=== PATIENT | male | born 1975 | race Caucasian/White ===

== ENCOUNTER 2019-05-19 10:45 | Day surgery (SDC) | payer OTHER, SELFPAY ==
[2019-05-18 08:42] VITALS: BMI 43.7
[2019-05-19] VITALS (11 sets, daily range): BP systolic 130–173; BP diastolic 60–85; PULSE 52–60; RESP 15–20; TEMP 36.4–36.6; O2SAT 91–97
--- NOTE | 2019-05-19 11:36 | ANES.PREANES ---
Pre-Anesthetic Assessment Pre-Anesthetic Assessment: Height/Weight: Height 1.91 m Weight 158.757 kg Proposed Procedure: Operation Date: 05/19/19 12:45 Proposed Procedures p Laparoscopic Possible open Cholecystectomy(Not Applicable) - Demetrio Alonso MD Last intake: Intake Last Liquid Date 05/18/19 Last Liquid Time 23:50 Last Solid Date 05/18/19 Last Solid Time 23:50 Social: Social History: No alcohol and No tobacco Exam: Pre-Anes Outpt Exam: alert, oriented x 3, clear to auscultation bilaterally and regular rate & rhythm Airway: Submandibular: WNL Cervical ROM: WNL MP: 1 Dentition: Other (teeth OK) Pulmonary: Pulmonary: Sleep apnea CV/HEM: CV/HEM: None reported : : None reported Hepatic: Hepatic: None reported GI: GI: None reported Metabolic: Metabolic: Morbid obesity Musc/skel: Musc/skel: None reported Neuropsych: Neuropsych: None reported Anesthetic Plan: ASA status: II Anesthesia: Anesthesia Evaluation and General Risk of > 500 ml blood loss (7ml/kg in children): No PFSH Anesthesia PFSH: Medical History Bronchitis (Acute) Cholecystitis with cholelithiasis (Acute) RUQ abdominal pain (Acute) Staph infection (Acute) Surgical History History of chest tube placement (Acute) History of vasectomy (Acute) Hx of appendectomy (Acute) Hx of splenectomy (Acute) Social History Smoking and tobacco status: current every day smoker Alcohol intake: current Alcohol intake frequency: few times a week Substance/Drug Use: never Adopted: Yes Data Anesthesia Cardiac Studies: No Data to Display
[2019-05-19] MEDS: sodium chloride 0.9% 1,000 ML 30 ML IV (12:11)
[2019-05-19] MEDS: ceFAZolin 1,000 mg SDV 1000 MG IVP (12:25)
[2019-05-19 13:00] LABS: Alanine Aminotransferase 65 U/L (0-41); Albumin Level 5.3 g/dL (3.5-5.2); Alkaline Phosphatase 89 IU/L (40-130); Aspartate Amino Transferase 52 U/L (0-40); Globulin 1.6 g/dL (1.3-4.6); Total Bilirubin 0.7 mg/dL (0.15-1.2); Total Protein 6.9 g/dL (6.6-8.7)
--- NOTE | 2019-05-19 13:45 | PM.OP ---
Operative Report Post-Operative Note: Date of procedure: 05/19/19 Preop Diagnosis: Symptomatic cholelithiasis Post-op diagnosis: same Procedure Done: Laparoscopic cholecystectomy. Specimens removed/disposition: Gallbladder and contents. Surgeon: Demetrio Alonso Anesthesia: general Estimated blood loss (mL): 25 Condition: stable Disposition: PACU Operative Report: Procedure: The patient was brought to the Operating Room and was placed in a supine position on the Operating Room table. General endotracheal anesthesia was induced. The abdomen was prepped and draped in a sterile fashion. A small vertical incision was carried out in the inferior aspect of the umbilicus. Blunt dissection was carried out down to the fascia, which was grasped with a Jud clamp. A stay suture of 0 Vicryl was placed on either side of the midline and the midline fascia was incised. The underlying peritoneum was opened bluntly and the Mary port was placed directly into the peritoneal cavity and was held in place with the inflatable balloon. The peritoneal cavity was insufflated with carbon dioxide. The laparoscope was used to inspect the abdominal cavity. The patient had extensive adhesions throughout the abdomen. Some of these involved loops of small bowel to the anterior abdominal wall. The right upper quadrant primarily had fatty adhesions. Two 5-millimeter ports were placed on the right side of the abdomen under direct vision. The adhesions in the right upper quadrant were then taken down using blunt dissection with some cautery to maintain hemostasis. This was carried out medially so that a third 5 mm port could be placed under direct vision just to the right side of the epigastrium. The gallbladder was grasped and was elevated. The patient had adhesions all the way along the fundus and infundibular region of the gallbladder. All of these were taken down using blunt dissection with a minimum of cautery to maintain hemostasis. The duodenum was involved in some very light adhesions to the infundibular region, but was easily from the gallbladder. Blunt dissection and hydrodissection were carried out in the infundibular region of the gallbladder and the cystic duct and cystic artery were identified. The patient had a large stone in the infundibulum. The gallbladder was partially removed from the liver bed using cautery and the spatula to confirm the anatomy before the structures were clipped and divided. The gallbladder was then removed from the liver bed using cautery and the spatula. A very small hole was made in the upper infundibulum during the dissection, and a minimum amount of bile leaked out. No stones were lost. After the gallbladder had been removed from the liver bed, the laparoscope was moved to the epigastric port and the gallbladder was removed from the peritoneal cavity through the umbilical port site after being placed in a laparoscopic bag. The stay sutures of Vicryl were tied to each other at the umbilicus. Some simple sutures of 0 Ethibond were used, closing the defect so that it was airtight. The perihepatic spaces were irrigated with saline and the liver bed was reinspected. No ongoing problems were seen. The remaining ports were removed from the abdominal wall and the pneumoperitoneum was evacuated. All skin incisions were closed using inverted interrupted sutures of 4-0 Vicryl. Benzoin and Steri-Strips were placed over the incisions and Band-Aids followed. The patient was taken to the Recovery Area in stable condition postoperatively. Coding Level of Care Code Acute Child Development Associate Teacher for Samantha Garvey
--- NOTE | 2019-05-19 14:14 | SUR.PHASEI ---
1355 PT ARRIVED TO PACU FROM OR VIA GURNEY, AIRWAY PATENT, RR EVEN/UNLABORED, SIMPLE MASK APPLIED, DRESSING CDI
[2019-05-19] MEDS: HYDROcodone-acetaminophen 5-325 mg Tablet 1 TAB PO (15:30)
--- NOTE | 2019-06-09 18:06 | PM.HPUD ---
H&P update H&P Update: DATE H&P PERFORMED: 05/19/19 PLANNED PROCEDURE: Operation Date: 05/19/19 12:45 Proposed Procedures p Laparoscopic Possible open Cholecystectomy(Not Applicable) - Demetrio Alonso MD Full H&P Perinent History: Medical/Surgical History: Medical History (Updated 05/19/19 @ 11:43 by Bakari Dave MD) Bronchitis (Acute) Cholecystitis with cholelithiasis (Acute) RUQ abdominal pain (Acute) Staph infection (Acute) Social History: Social History Smoking and tobacco status: current every day smoker Alcohol intake: current Alcohol intake frequency: few times a week Substance/Drug Use: never Adopted: Yes
== END 2019-05-19 16:10 | disposition home or self-care (01) ==
PROVIDERS: Family Provider Family Medicine; Visit Provider Surgery
PROC: 0FT44ZZ Resection of Gallbladder, Percutaneous Endoscopic Approach (ICD-10-PCS; CPT 47562; principal; 2019-05-19 12:45)
DX: K80.10 Calculus of gallbladder with chronic cholecystitis without obstruction (principal); Z86.14 Personal history of Methicillin resistant Staphylococcus aureus infection; F17.210 Nicotine dependence, cigarettes, uncomplicated
CPT/HCPCS: 47562; 12345; 36415; 80076; 88304; 99221; J0690; J1100; J1885; J2001; J2405; J2704; J2710; J3010; J3490; J7030

== ENCOUNTER 2019-07-27 11:52 | Outpatient (CLI) | payer OTHER, SELFPAY ==
--- NOTE | 2019-07-27 | XR_ITS ---
WS: [id number] LUMBAR SPINE: 5 VIEWS TECHNIQUE: AP, lateral, and L5-S1 spot. Lateral views in neutral, flexion and extension. HISTORY: SCIATICA RIGHT SIDE COMPARISON: None available. Less than 2 mm retrolisthesis of L2, L3 and L4. With flexion and extension the retrolisthesis does no t change significantly. No fractures. No significant loss of disc space height. There is very slight LEFT convex curvature of the lumbar sp ine. Mild facet joint arthritis at L4-5 and L5-S1. SI joints are symmetric bilaterally. No soft tissue abnormalities. XR/XR lumbar spine min 4V [id number] IMPRESSION: 1. No lumbar spine instability. 2. No fracture. 3. Mild facet joint arthritis at L4-5 and L5-S1.
== END 2019-07-27 11:53 | disposition home or self-care (01) ==
PROVIDERS: Family Provider Family Medicine; Visit Provider Family Medicine
DX: Z01.89 Encounter for other specified special examinations (principal)

== ENCOUNTER 2020-02-06 20:00 | Outpatient (CLI) | payer OTHER, SELFPAY | END 2020-02-06 20:01 | disposition home or self-care (01) | LOC: SLEEP 02-07 10:07 | PROVIDERS: Family Provider Family Medicine; Visit Provider Family Medicine | DX: G47.33 Obstructive sleep apnea (adult) (pediatric) (principal) | CPT/HCPCS: 95811 ==

== ENCOUNTER 2022-01-07 06:48 | Outpatient (CLI) | payer OTHER, SELFPAY ==
--- NOTE | 2022-01-07 07:18 | MR_ITS ---
WS: [id number] MRI LUMBAR SPINE NONCONTRAST HISTORY: SCIATICA COMPARISON: Radiographs 12/16/2021 TECHNIQUE: Sagittal and axial multisequence imaging is submitted. Mild spondylitic changes in the cervical and thoracic spine. No cord compression. Mild curvature and straightening of the lumbar spine. 2 mm retrolisthesis of L2 and L3. No acute fracture or marrow edema. Mild narrowing and desiccation of the disc spaces. Conus terminates normally at L1. L1-L2: Normal. L2-L3: Small central disc protrusion and mild osteophytic ridging encroaching upon the ventral thecal sac. Mild narrowing of the subarticular recesses. Mild bilateral foraminal narrowing. L3-L4: Mild disc bulging asymmetric to the RIGHT and osteophytic ridging. Moderate facet joint arthri tis. Mild subarticular recess encroachment greatest on the RIGHT with disc and/or osteophyte contacti ng the traversing RIGHT L4 nerve root. Moderate bilateral foraminal stenosis. L4-L5: Moderate bilateral facet joint arthritis. No central stenosis or disc protrusion. Mild foramin al stenosis. L5-S1: Small central disc protrusion. Additional small disc protrusion or osteophyte in the LEFT fora men contacting the undersurface of the LEFT L5 nerve root. Only minimal foraminal narrowing. Similar findings noted on the RIGHT. Paravertebral soft tissues are negative. MR/MR lumbar spine wo con* [id number] IMPRESSION: 1. Multilevel mild to moderate degenerative disc disease and facet arthritis. 2. Mild subarticular recess encroachment at L3-4 with disc or osteophyte conta cting the traversing RIGHT L4 nerve root. 3. Moderate bilateral foraminal stenosis at L3-4 also. 4. Mild foraminal stenosis at L2-3 and L4-5. 5. Small central and foraminal disc protrusions at L5-S1. Minimal contact on t he under surfaces of the exiting L5 nerve roots. Slightly greater on the LEFT.
== END 2022-01-07 06:49 | disposition home or self-care (01) ==
LOC: RAD 06:50
PROVIDERS: Visit Provider Family Medicine
DX: M54.30 Sciatica, unspecified side (principal); M51.36 Other intervertebral disc degeneration, lumbar region; M47.816 Spondylosis without myelopathy or radiculopathy, lumbar region; M48.061 Spinal stenosis, lumbar region without neurogenic claudication; M51.27 Other intervertebral disc displacement, lumbosacral region
CPT/HCPCS: 72148

== ENCOUNTER 2025-05-17 12:45 | Outpatient (CLI) | payer OTHER, SELFPAY ==
--- NOTE | 2025-05-17 12:53 | MR_ITS ---
WS: [id number] MRI RIGHT KNEE HISTORY: INSTABILITY OF RIGHT KNEE JOINT COMPARISON: Radiograph 04/28/2025 Anterior cruciate ligament: Intact. Posterior cruciate ligament: Intact. Medial collateral ligament: Intact. Posterior lateral corner structures: Intact. Medial menisci: Intact. Normal signal, size and shape. Lateral meniscus: Very slight blunting free edge of the posterior horn. Fraying along the superior and inferior articular surfaces. Extensor mechanism: Distal quadriceps tendon and patellar tendons are intact. Fluid and soft tissue: Small suprapatellar joint effusion. Small Patton's cyst. Osseous and articular structures: Patellofemoral compartment: Mild lateral subluxation of the patella. Small amount of edema within the superior patella. Mild thinning of the cartilage. There is more focal chondromalacia at the patellar eminence and along the medial patellar facet. Medial compartment: Mild narrowing. No marrow edema or fracture. Cartilage is well-preserved. Lateral compartment: Mild narrowing of the lateral compartment. Focal area of chondromalacia and increased signal measuring 10 mm along the mid tibial plateau. Additional mild chondromalacia along the weightbearing surface of the femoral condyle. MR/MR knee RT wo con* [id number] IMPRESSION: 1. No ACL tear. 2. Minimal surface fraying posterior horn lateral meniscus but no meniscal tea r identified. 3. Moderate segment areas of chondromalacia involving the weightbearing surfac e of the lateral femoral condyle and the lateral tibial plateau. No underlying marrow edema. 4. Small suprapatellar joint effusion. 5. Small Patton's cyst. 6. Mild lateral subluxation of the patella. Mild chondromalacia of the patella r eminence and along the lateral patellar facet. 7. Mild narrowing medial and lateral compartments.
== END 2025-05-17 12:46 | disposition home or self-care (01) ==
LOC: RAD 12:46
PROVIDERS: PCP Family Medicine; Visit Provider Family Medicine
DX: M25.461 Effusion, right knee (principal); M71.21 Synovial cyst of popliteal space [Baker], right knee; M22.41 Chondromalacia patellae, right knee
CPT/HCPCS: 73721